=== PATIENT | male | born 1965 | race Caucasian/White ===

== ENCOUNTER 2017-01-23 18:33 | Emergency (ER) | payer SELFPAY ==
[2017-01-23 19:06] VITALS: BMI 28.0
[2017-01-23 19:08] VITALS: BP 130/79; PULSE 87; RESP 18; TEMP 97.9; O2SAT 100
--- NOTE | 2017-01-23 19:22 | C.PDOC ---
History Of Present Illness 51 y/o male presents with laceration to left middle finger sustained one week ago. pt cut into finger with a drill bit by accident. pt did not receive medical attention at the time of injury, sts he has been cleaning wound with alcohol and applying antibiotic ointment, no fevers. pt reports some purulent drainage from finger. Time Seen by Provider: 01/23/17 19:13 Chief Complaint (Nursing): Finger,Hand,&Wrist History Per: Patient History/Exam Limitations: no limitations Onset/Duration Of Symptoms: Days (7) Current Symptoms Are (Timing): Still Present Quality: "Pain" Severity: Mild Past Medical History Reviewed: Historical Data, Nursing Documentation, Vital Signs Vital Signs: Last Vital Signs Temp 97.9 F 01/23/17 19:05 Pulse 87 01/23/17 19:05 Resp 18 01/23/17 19:05 BP 130/79 01/23/17 19:05 Pulse Ox 100 01/23/17 19:26 - Medical History PMH: No Chronic Diseases Family History: States: Unknown Family Hx - Social History Hx Tobacco Use: No Hx Alcohol Use: Yes Hx Substance Use: No - Immunization History Hx Tetanus Toxoid Vaccination: No Hx Influenza Vaccination: No Hx Pneumococcal Vaccination: No Review Of Systems Constitutional: Negative for: Fever Musculoskeletal: Positive for: Hand Pain (left middle finger) Skin: Positive for: Other (healng of laceraiton) Neurological: Negative for: Numbness Physical Exam - Physical Exam Appears: Non-toxic, No Acute Distress Skin: Warm, Dry, Other (approx 1.5 cm laceration to distal tip of left 3rd finger lateral to nail, healing by secondary intention, mild swelling and tenderness , no erythema, no discharge. ) Neurological/Psych: Oriented x3, Normal Speech, Normal Cognition, Normal Motor, Normal Sensation ED Course And Treatment O2 Sat by Pulse Oximetry: 100 Medical Decision Making Medical Decision Making: pt with mild swelling to healing wound on left middle finger, will d/c with keflex, pt declines tdap booster. Disposition Counseled Patient/Family Regarding: Diagnosis, Need For Followup, Rx Given - Disposition Referrals: Eliseo Dang DO [Staff Provider] - Disposition: HOME/ ROUTINE Disposition Time: 19:23 Condition: STABLE Additional Instructions: Take Keflex as prescribed. Wash wound several times a day with soap and water, pat dry gently and apply a neosporin or bacitracin; keep clean and dry. Tylenol or Motrin for pain if needed. Return to ER for any worse swelling to finger, fever or any other concerns. Prescriptions: Cephalexin [Keflex] 500 mg PO QID #28 capsule Instructions: Wound Infection (ED) Forms: [facility] (Georgian), General Discharge Instructions - Clinical Impression Clinical Impression: Infected finger laceration
== END 2017-01-23 19:36 | disposition home or self-care (01) ==
LOC: C.ER 18:33
DX: S61.213A Laceration without foreign body of left middle finger without damage to nail, initial encounter (principal); W29.8XXA Contact with other powered hand tools and household machinery, initial encounter; L08.9 Local infection of the skin and subcutaneous tissue, unspecified

== ENCOUNTER 2018-01-08 04:11 | Emergency (ER) | payer SELFPAY ==
[2018-01-08 04:12] VITALS: BMI 28.0
[2018-01-08 04:19] VITALS: RESP 16
[2018-01-08] MEDS ORDERED: Sodium Chloride 0.9% 1,000 ML IV ONE (04:25)
--- NOTE | 2018-01-08 04:28 | C.PDOC ---
History Of Present Illness 52 year old male presents to the ED c/o sudden onset left posterior chest wall and lumbar area pain that started tonight. Patient reports pain worsens with movement and palpation of the area. Patient denies fever, chills, nausea, vomit, injury, fall, trauma, SOB, palpitations, weakness, numbness. Chief Complaint (Nursing): Back Pain History Per: Patient History/Exam Limitations: no limitations Onset/Duration Of Symptoms: Sudden Onset Current Symptoms Are (Timing): Still Present Quality Of Discomfort: "Pain" Exacerbating Factor(s): Movement Recent travel outside of the [place]: No Additional History Per: Patient Past Medical History Reviewed: Historical Data, Nursing Documentation, Vital Signs Vital Signs: Last Vital Signs Temp 98.3 F 01/08/18 04:18 Pulse 99 H 01/08/18 04:18 Resp 16 01/08/18 04:18 BP 137/90 01/08/18 04:18 Pulse Ox 98 01/08/18 04:18 - Medical History PMH: No Chronic Diseases Surgical History: No Surg Hx Family History: States: Unknown Family Hx - Social History Hx Tobacco Use: No Hx Alcohol Use: Yes Hx Substance Use: No - Immunization History Hx Tetanus Toxoid Vaccination: No Hx Influenza Vaccination: No Hx Pneumococcal Vaccination: No Review Of Systems Constitutional: Negative for: Fever, Chills Cardiovascular: Positive for: Chest Pain. Negative for: Palpitations Respiratory: Negative for: Cough, Shortness of Breath Gastrointestinal: Negative for: Nausea, Vomiting, Abdominal Pain, Diarrhea Genitourinary: Negative for: Dysuria, Hematuria Musculoskeletal: Positive for: Back Pain Skin: Negative for: Rash Neurological: Negative for: Weakness, Numbness Physical Exam - Physical Exam Appears: Non-toxic, In Acute Distress Skin: Normal Color, Warm, Dry Head: Atraumatic, Normacephalic Eye(s): bilateral: Normal Inspection Neck: Normal ROM, Supple Chest: Symmetrical, Tenderness (left posterior chest wall) Cardiovascular: Rhythm Regular Respiratory: Normal Breath Sounds, No Rales, No Rhonchi, No Wheezing Gastrointestinal/Abdominal: Soft, No Tenderness, No Guarding, No Rebound Back: Other (left flank area tenderness) Extremity: Normal ROM, No Tenderness, No Swelling Neurological/Psych: Oriented x3, Normal Speech, Normal Cognition Gait: Steady ED Course And Treatment - Laboratory Results Result Diagrams: 01/08/18 04:41 01/08/18 04:41 O2 Sat by Pulse Oximetry: 98 (On RA) Pulse Ox Interpretation: Normal - Radiology CXR: Interpreted by Me, Viewed By Me CXR Interpretation: Yes: No Acute Disease. No: Infiltrates - CT Scan/US CT abd/pelvis Other Rad Studies (CT/US): Read By Radiologist, Radiology Report Reviewed CT/US Interpretation: CT SCAN OF THE ABDOMEN AND PELVIS WITHOUT ORAL OR IV CONTRAST. CLINICAL INDICATION: Abdominal pain. TECHNIQUE: Axial and reformatted sagittal and coronal images of the abdomen pelvis obtained without IV contrast administration. COMPARISON: None. FINDINGS: The visualized lung bases are unremarkable. Few scattered well defined hypodense hepatic lesions the largest measuring 0.8 cm. Normal remaining unenhanced liver. Normal gallbladder and extrahepatic biliary system. Normal unenhanced spleen. Normal pancreas. . Normal bilateral adrenal glands. Normal size of the right kidney. There is no right renal mass. There are no right renal calculi. There is no right hydronephrosis. Normal visualized right ureter. Normal size of the left kidney. There is no left renal mass. 7 mm left renal nonobstructing stone. There is no left hydronephrosis. Normal visualized left ureter. Normal visualized stomach. Normal small intestine. Uncomplicated diverticulosis with moderate amount of fecal residue in the colon. The appendix is visualized and appears normal. There is no demonstrated peritoneal fluid. Calcified atheromatous plaques of the abdominal aorta. Normal inferior vena cava. Normal retroperitoneum. . Normal urinary bladder. There is no pelvic mass lesion or lymphadenopathy. There is no pelvic fluid. . Fat containing umbilical hernia without incarceration. Normal osseous structures. IMPRESSION: Nonobstructing nephrolithiasis. Mild amount of fecal residue in the large bowels. Uncomplicated colonic diverticulosis. . Electronically signed on Jan 08, 2018 5:57:12 AM EST by: Asim Sharp M.D., Certified by FARHAD, MSK, Neuroradiology Medical Decision Making Medical Decision Making: Plan: * CT abd/pelvis * Labs * Flexeril 10 mg PO * IV fluids * Toradol 30 mg IVP * UA Disposition Counseled Patient/Family Regarding: Diagnosis - Disposition Referrals: [facility] [Outside] Disposition: HOME/ ROUTINE Disposition Time: 06:01 Condition: STABLE Prescriptions: Cyclobenzaprine [Cyclobenzaprine HCl] 10 mg PO TIDPC #20 tab Naproxen 375 mg PO TIDPC #20 tablet Instructions: Costochondritis Forms: [facility] (Kyrgyz) - POA Present On Arrival: None - Clinical Impression Clinical Impression: Thoracic back pain, Kidney stone on left side - Scribe Statement The provider has reviewed the documentation as recorded by the Scribe Raheem Salgado All medical record entries made by the Scribe were at my direction and personally dictated by me. I have reviewed the chart and agree that the record accurately reflects my personal performance of the history, physical exam, medical decision making, and the department course for this patient. I have also personally directed, reviewed, and agree with the discharge instructions and disposition.
[2018-01-08] MEDS ORDERED: Sodium Chloride 0.9% 1,000 ML ONE (04:30)
[2018-01-08 04:44] LABS: BASO # 0.1 K/uL (0.0-0.2); BASO % 0.7 % (0.0-2.0); EOS # 0.1 K/uL (0.0-0.7); EOS % 0.7 % (0.0-4.0); HEMOGLOBIN 13.6 g/dL (12.0-18.0); LYMPH # 2.6 K/uL (1.0-4.3); LYMPH % 31.4 % (20.0-40.0); MEAN CELL VOLUME 90.8 fL (80.0-94.0); MEAN CORPUSCULAR HEMOGLOBIN 31.7 pg (27.0-31.0); MEAN CORPUSCULAR HGB CONC 34.9 g/dL (33.0-37.0); MONO # 0.4 K/uL (0.0-0.8); MONO % 4.9 % (0.0-10.0); NEUT # 5.1 K/uL (1.8-7.0); NEUT % 62.3 % (50.0-75.0); NRBC % 0.1 % (0.0-2.0); RBC 4.28 Mil/uL (4.40-5.90); RED CELL DISTRIBUTION WIDTH 12.6 % (11.5-14.5); WHITE BLOOD COUNT 8.1 K/uL (4.8-10.8)
[2018-01-08 04:55] LABS: ALB/GLOB RATIO 1.4 (1.0-2.1); ALBUMIN 4.4 g/dL (3.5-5.0); ALT/SGPT 48 U/L (21-72); AST/SGOT 29 U/L (17-59); BLOOD UREA NITROGEN 16 mg/dL (9-20); CALCIUM 8.5 mg/dl (8.6-10.4); GFR NON-AFRICAN AMERICAN > 60; LIPASE 120 U/L (23-300)
[2018-01-08 05:07] LABS: GRANULAR CAST 1 /lpf (0-1); SQUAMOUS EPITHIAL < 1 /hpf (0-5); URINE BILIRUBIN NEGATIVE (NEGATIVE); URINE BLOOD NEGATIVE (NEGATIVE); URINE CLARITY Clear (Clear); URINE COLOR Yellow (YELLOW); URINE GLUCOSE (UA) NORMAL (Normal); URINE LEUKOCYTE ESTERASE NEG Leu/uL (Negative); URINE PROTEIN NEGATIVE (NEGATIVE); URINE UROBILINOGEN NORMAL mg/dL (0.2-1.0)
[2018-01-08 06:20] VITALS: BP 137/78; PULSE 76; TEMP 98.4; O2SAT 99
--- NOTE | 2018-01-08 08:08 | CT ---
Date of service: 01/08/2018 PROCEDURE: CT Abdomen and Pelvis without intravenous contrast HISTORY: left flank pain COMPARISON: None. TECHNIQUE: Multiple contiguous axial images were performed through the abdomen and pelvis without the use of intravenous contrast. Subsequently, sagittal and coronal reformatted images were obtained. Radiation dose: Total exam DLP = 964.8 mGy-cm. This CT exam was performed using one or more of the following dose reduction techniques: Automated exposure control, adjustment of the mA and/or kV according to patient size, and/or use of iterative reconstruction technique. FINDINGS: LOWER THORAX: Linear atelectasis in the medial aspect of the right middle lobe. Mild pericardial thickening and/or fluid. LIVER: Few scattered subcentimeter hypodensities in the liver for example on series 3, image 20 in the right hepatic lobe as well as series 3, image 39 both measuring approximately 7 millimeters respectively. GALLBLADDER AND BILE DUCTS: Unremarkable. PANCREAS: Unremarkable. No gross lesion or ductal dilatation. SPLEEN: Unremarkable. ADRENALS: Mild nodularity of the adrenal glands. KIDNEYS AND URETERS: Few scattered calculi seen within the left kidney; for example, a 7.5 millimeter calculus is noted in the lower pole of the left kidney. Additional punctate 2 millimeter and 3 millimeter calculi noted in the midpole. No gross hydronephrosis. 6.5 millimeter lower pole hypodensity seen within the inferior left kidney too small to adequately characterize. VASCULATURE: Unremarkable. No aortic aneurysm. Aortic atherosclerotic calcification or mural plaque present. BOWEL: Colonic diverticulosis. Underdistention and or mild thickening of the transverse and descending colon. Moderate fecal retention in the right hemicolon. APPENDIX: 6 millimeter appendicolith noted at the distal portion of the appendix. No gross appendiceal thickening or adjacent fat stranding or fluid. PERITONEUM: Unremarkable. No free fluid. No free air. LYMPH NODES: Few shotty para-aortic and inguinal lymph nodes BLADDER: Unremarkable. REPRODUCTIVE: Unremarkable. BONES: Degenerative changes in the spine and shoulders. + OTHER FINDINGS: Calcified phleboliths in the pelvis. Fat containing umbilical hernia. IMPRESSION: 1. Few scattered calculi seen within the left kidney; for example, a 7.5 millimeter calculus is noted in the lower pole of the left kidney. Additional punctate 2 millimeter and 3 millimeter calculi noted in the midpole. No gross hydronephrosis. 6.5 millimeter lower pole hypodensity seen within the inferior left kidney too small to adequately characterize. 2. Colonic diverticulosis. Underdistention and or mild thickening of the transverse and descending colon. Moderate fecal retention in the right hemicolon. 3. 6 millimeter appendicolith noted at the distal portion of the appendix. No gross appendiceal thickening or adjacent fat stranding or fluid. 4. Linear atelectasis in the medial aspect of the right middle lobe. Mild pericardial thickening and/or fluid. 5. Few scattered subcentimeter hypodensities in the liver for example on series 3, image 20 in the right hepatic lobe as well as series 3, image 39 both measuring approximately 7 millimeters respectively. A preliminary report was generated at 5:57 a.m. on 01/08/[address] Asim Sharp from [employer].
--- NOTE | 2018-01-08 10:18 | RAD ---
Chest x-ray two views HISTORY: Chest pain. COMPARISON: None available. FINDINGS: Mild venous congestion. No atherosclerotic calcification within the aorta. Tortuous ectatic aorta. Heart size within normal limits. Impression: Mild venous congestion.
== END 2018-01-08 06:20 | disposition home or self-care (01) ==
LOC: C.ER 04:11
DX: N20.0 Calculus of kidney (principal); M54.6 Pain in thoracic spine
CPT/HCPCS: 71046; 74176; 80053; 81001; 83690; 85025; 96374; 99283; J1885; J7030

== ENCOUNTER 2018-05-02 16:31 | Emergency (ER) | payer BC | END 2018-05-02 18:22 | disposition home or self-care (01) | LOC: C.ER 16:31 ==

== ENCOUNTER 2018-05-30 08:50 | Emergency (ER) | payer BC ==
[2018-05-30 08:50] VITALS: BMI 29.5
[2018-05-30 09:11] VITALS: BP 136/91; PULSE 97; RESP 18; TEMP 98.2; O2SAT 100
[2018-05-30] MEDS ORDERED: Bacitracin 500 Units/gm Oint Foilpak UD TOP ONE (09:28)
--- NOTE | 2018-05-30 09:30 | C.PDOC ---
History Of Present Illness 52 year old male presents to ED requesting suture removal. Patient had sutures placed to his right hand on 05/02/18. Patient states that he waited so long to get them removed because the wound still appeared open and was afraid it would open up again. Patient denies fever, discharge, and pain. Time Seen by Provider: 05/30/18 09:06 Chief Complaint (Nursing): Suture/Staple Removal History Per: Patient History/Exam Limitations: no limitations Onset/Duration Of Symptoms: Other (suture removal ) Current Symptoms Are (Timing): Better Location Of Injury: Right: Hand (sutures) Quality Of Symptoms: denies: Draining Past Medical History Reviewed: Historical Data, Nursing Documentation, Vital Signs Vital Signs: Last Vital Signs Temp 98.2 F 05/30/18 09:01 Pulse 97 H 05/30/18 09:01 Resp 18 05/30/18 09:01 BP 136/91 H 05/30/18 09:01 Pulse Ox 100 05/30/18 09:01 - Medical History PMH: No Chronic Diseases Surgical History: No Surg Hx Family History: States: Unknown Family Hx - Social History Hx Tobacco Use: No Hx Alcohol Use: Yes Hx Substance Use: No - Immunization History Hx Tetanus Toxoid Vaccination: No Hx Influenza Vaccination: No Hx Pneumococcal Vaccination: No Review Of Systems Constitutional: Negative for: Fever, Chills, Weakness Musculoskeletal: Negative for: Hand Pain (right) Skin: Negative for: Other (discharge to the right hand) Neurological: Negative for: Weakness, Numbness, Dizziness Physical Exam - Physical Exam Appears: Well, Non-toxic, No Acute Distress Skin: Normal Color, Warm, Dry Head: Atraumatic, Normacephalic Neck: Normal, Supple Chest: Symmetrical, No Deformity Extremity: Capillary Refill (<2 seconds), No Swelling, Other (well healing laceration to the thenar eminence of the right hand with 8 intact sutures partially embedded into the skin, no erythema, no discharge, normal ROM of the digits) Pulses: Left Radial: Normal, Right Radial: Normal Neurological/Psych: Oriented x3, Normal Speech, Normal Cognition ED Course And Treatment O2 Sat by Pulse Oximetry: 100 (in RA) Progress Note: Patient given Bacitracin TOP. Sutures removed. Patient tolerated well. Re-evaluation.Discussed plan with patient who expresses understanding. All questions answered and there is agreement with the plan to discharge home with instructions. Patient stable for discharge. Return if symptoms persist or worsen. Disposition Counseled Patient/Family Regarding: Diagnosis, Need For Followup - Disposition Referrals: Eliseo Dang DO [Staff Provider] - Disposition: HOME/ ROUTINE Disposition Time: 09:30 Condition: STABLE Additional Instructions: FOLLOW UP WITH YOUR DOCTOR IN 1-2 DAYS RETURN TO ER IF YOU HAVE ANY CONCERNING SYMPTOMS Instructions: Stitches Removal Forms: [email or web address] [facility] (Central African) Print Language: ESTONIAN - Clinical Impression Clinical Impression: Removal of suture - Scribe Statement The provider has reviewed the documentation as recorded by the Scribe (Reyna Falcon) All medical record entries made by the Scribe were at my direction and personally dictated by me. I have reviewed the chart and agree that the record accurately reflects my personal performance of the history, physical exam, medical decision making, and the department course for this patient. I have also personally directed, reviewed, and agree with the discharge instructions and disposition.
[2018-05-30] MEDS ORDERED: Bacitracin 500 Units/gm Oint Foilpak UD ONE (09:36)
== END 2018-05-30 09:35 | disposition home or self-care (01) ==
LOC: C.ER 08:50
DX: Z48.02 Encounter for removal of sutures (principal)